=== PATIENT | female | born 1930 | race Caucasian/White ===

== ENCOUNTER → 2018-05-20 | Outpatient (CLI) | payer MEDICARE ==
[~2018-05-20] MED LIST: AMIT50; ASCO500; ATOR10; ATOR20 PO; CHOL10002 PO; CONEST.3; DIPH25; ESTR25VT; GABA300 PO; GLYB5 PO; HYDACE5 PO; HYDMOR4 PO; LANS30PKT; LEVFLO500 PO; LISI20 PO; LISI5; METF500; METO25ER PO; METO50ER; MULVITA; NAPR220 PO; Naprosyn500 MG PO; OXYB5 PO; OXYC5 PO; PHENA200 PO; RXPHEN200 PO; VIACTIN; [UNRECOGNIZED DRUG - OTHER]
== END | disposition home or self-care (01) ==
LOC: LAB 17:13 → LAB SHORT 17:13
DX: R30.0 Dysuria (principal)
CPT/HCPCS: 87077; 87086; 87186